=== PATIENT | male | born 1990 | race Caucasian/White ===

== ENCOUNTER 2024-01-28 09:00 | Outpatient (CLI) | payer BC, SELFPAY | END 2024-01-28 09:01 | disposition home or self-care (01) | PROVIDERS: PCP Family Medicine; Visit Provider Family Medicine | DX: Z00.00 Encounter for general adult medical examination without abnormal findings (principal); Z13.6 Encounter for screening for cardiovascular disorders; Z13.9 Encounter for screening, unspecified | CPT/HCPCS: 80048; 80061 ==

== ENCOUNTER 2025-01-28 08:33 | Outpatient (CLI) | payer BC, SELFPAY | END 2025-01-28 08:34 | disposition home or self-care (01) | PROVIDERS: PCP Family Medicine; Visit Provider Family Medicine | DX: E78.00 Pure hypercholesterolemia, unspecified (principal) | CPT/HCPCS: 80048; 80061 ==